=== PATIENT | male | born 1965 | race Caucasian/White ===

== ENCOUNTER 2017-03-24 08:43 | Emergency (ER) | payer MEDICAID ==
--- NOTE | 2017-03-24 08:56 | EDPHY ---
H & P Time Seen by Provider: 03/24/17 08:52 HPI/ROS: 51-year-old male presents complaining of sinus congestion with foul drainage for approximately 2 weeks, more recently associated with cough. He also complains of fever, no chills. He denies shortness of breath Review of systems As per HPI General positive fever no chills no weakness HEENT, positive URI symptoms positive nasal congestion and drainage no eye pain no eye discharge. No eye redness, no sore throat Respiratory positive cough, no shortness of breath Cardiac no chest pain, no peripheral edema GI no abdominal pain, no diarrhea, no constipation, no nausea, no vomiting no flank pain, no hematuria, no dysuria Musculoskeletal no myalgias, no joint pain Heme no easy bruising, no easy bleeding Endo no polyuria, no polydipsia Skin no rashes, no pruritus Neuro no syncope, no dizziness, no headaches Psych is no suicidal ideation, no homicidal ideation Past Medical/Surgical History: Sinusitis Social History: Alcohol socially, denies drug use Smoking Status: Never smoked Physical Exam: 51-year-old male Alert and oriented nontoxic appearance, no acute distress afebrile Atraumatic normocephalic Extraocular muscles intact, anicteric Nares mild yellowish discharge, erythematous turbinates, deviated septum Oropharynx mild erythema no tonsillar swelling no exudate no uvular deviation, tolerating own secretions Neck supple no lymphadenopathy Lungs clear to auscultation bilaterally Heart regular rate and rhythm Abdomen normoactive bowel sounds soft nontender Extremities no cyanosis clubbing or edema Skin no rash Constitutional: Initial Vital Signs Temperature (C) 36.4 C 03/24/17 08:45 Heart Rate 72 03/24/17 08:45 Respiratory Rate 20 03/24/17 08:45 Blood Pressure 136/80 H 03/24/17 08:45 O2 Sat (%) 92 03/24/17 08:45 O2 Delivery Mode Room Air Allergies/Adverse Reactions: No Known Allergies Allergy (Unverified 11/25/14 15:29) Home Medications: Medication Instructions Recorded AZITHROMYCIN [Z-PACK] 250 mg PO DAILY #6 tab 03/24/17 Codeine Phosphate/Guaifenesin 15 ml PO Q6 PRN #240 ml 03/24/17 [Codeine-Guaifen 10-100 mg/5 ml] Fluticasone Nasal [Flonase Nasal 2 sprays NASAL DAILY #1 mdi 03/24/17 [place]] Medical Decision Making ED Course/Re-evaluation: Patient seen and evaluated for sinus congestion, fevers chills, cough, nasal drainage Differential diagnosis considered URI, sinusitis, bronchitis, pneumonia Impression Sinusitis and bronchitis Plan Z-Denilson (at patients request) Fluticasone Codeine guaifenesin cough syrup Follow-up primary care physician Return as needed Departure - Departure Disposition: Home, Routine, Self-Care Clinical Impression: Sinusitis, Bronchitis Condition: Good Instructions: Sinusitis (ED), Acute Bronchitis (ED) Referrals: NONE *PRIMARY CARE P,. [Primary Care Provider] - As per Instructions Prescriptions: AZITHROMYCIN [Z-PACK] 250 mg PO DAILY #6 tab Codeine Phosphate/Guaifenesin [Codeine-Guaifen 10-100 mg/5 ml] 15 ml PO Q6 PRN # 240 ml PRN Reason: Cough, Severe Fluticasone Nasal [Flonase Nasal [place]] 2 sprays NASAL DAILY #1 mdi
[2017-03-24 08:57] VITALS: BP 136/80; PULSE 72; RESP 20; TEMP 97.5; O2SAT 92
== END 2017-03-24 09:17 | disposition home or self-care (01) ==
LOC: CED 08:43
DX: J20.9 Acute bronchitis, unspecified (principal); J32.9 Chronic sinusitis, unspecified

== ENCOUNTER 2017-07-01 10:36 | Emergency (ER) | payer MEDICAID ==
[2017-07-01 10:47] VITALS: BP 139/72; PULSE 74; RESP 18; TEMP 99.1; O2SAT 92
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
== END 2017-07-01 11:04 | disposition home or self-care (01) ==
LOC: CED 10:36
DX: J01.01 Acute recurrent maxillary sinusitis (principal)

== ENCOUNTER 2017-07-06 11:10 | Emergency (ER) | payer MEDICAID ==
[2017-07-06 11:28] VITALS: BP 138/75; PULSE 69; RESP 14; TEMP 98.4; O2SAT 93
[2017-07-06] MEDS ORDERED: KETOROLAC 30 MG/1 ML SDV IVP ONE (11:35)
[2017-07-06] MEDS ORDERED: ACETAMINOPHEN 500 MG TAB PO ONE (11:36)
[2017-07-06] MEDS ORDERED: NS 1,000 ML IV ONE (11:49)
--- NOTE | 2017-07-06 11:51 | EDPHY ---
H & P Time Seen by Provider: 07/06/17 11:20 HPI/ROS: HPI Muscle aches, joint aches, sinus pain, sore throat. 51-year-old male by private vehicle. This patient presented to the emergency department here on July 01 with complaint of sinus congestion productive of a thick yellowish discharge mostly from his right nares and sinus pain/ pressure as well as a sore throat. He was diagnosed with a sinusitis. He was prescribed azithromycin. He finished this 2 days ago. He reports that his symptoms have continued. He complains of worsening muscle aches and joint aches , sore throat, pain involving his oral mucosa with shallow ulcerations, nausea and feeling lightheaded. He also states that he is having sweats at night and feeling feverish during the day and his symptoms overall seem worse at night. He reports a recent history of a tooth extraction which he had 3 weeks ago. He was on a 5 day course of amoxicillin after this. Denies ill contacts. No foreign travel. ROS: Constitutional: As above. No weakness. Eyes: No discharge. No changes in vision. ENT: As above. Respiratory: No cough. No shortness of breath. Cardiac: No chest pain, no palpitations. Gastrointestinal: No abdominal pain, no vomiting, no diarrhea. As above. Genitourinary: No hematuria. No dysuria or increased frequency with urination. Musculoskeletal: Significant for myalgias and arthralgias. Skin: No rashes. Neurological: No headache. No focal weakness or altered sensation. Past medical history: Cervical spine fusion surgery. He otherwise denies any significant past medical history. Social history: Nonsmoker. Denies alcohol. Here by himself. Physical Exam: General Appearance: Alert, no distress. He does not appear toxic. This patient is responding to questions appropriately and in full sentences. This patient appears well-hydrated and well-nourished. Eyes: Pupils equal and round no pallor or injection. No lid edema, erythema or injection. ENT, Mouth: Mucous membranes are moist. Mild pharyngeal erythema. No edema or swelling. No asymmetry suggestive of abscess. Scant shallow oral aphthous like ulcerations 1-2 mm in diameter pharyngeal arch and buccal mucosa. No stridor on auscultation of his neck. No significant pain on palpation of his maxillary and frontal sinuses. No facial soft tissue swelling. No cervical, submental, submandibular lymphadenopathy on palpation. Respiratory: There are no retractions, lungs are clear to auscultation with good air movement bilaterally. Cardiovascular: Regular rate and rhythm. No murmur. Gastrointestinal: Abdomen is soft and nontender, no masses, bowel sounds normal. No focal tenderness at McBurney's point. No Rivera sign. Neurological: Motor sensory function is grossly intact. Cranial nerves are normal. Gait is normal. Skin: Warm and dry, no rashes. Musculoskeletal: Neck is supple and nontender. No pain on flexion of the neck. Extremities are symmetrical. All joints range without pain or impingement. Psychiatric: No agitation. No depression. Database: EKG: Imaging: Procedures: Emergency department course: His vital signs reviewed and are normal. He has no contraindications to NSAIDs. No history of renal dysfunction or peptic ulcer disease. Swabs for influenza and strep obtained. I will also check him for mononucleosis and check a CBC. An IV was placed. He was given 30 mg of IV Toradol. He was given 1 g of oral Tylenol. 12:15 p.m., results of diagnostic testing reviewed with the patient. His presentation is consistent with a viral process. Serious bacterial infection is unlikely. At this time I do not feel that another course of antibiotics are indicated. I discussed supportive care with him. Hydration as well as Tylenol and ibuprofen for fever and sore throat. He feels comfortable with this and comfortable going home. He will follow up with his primary care physician on Tuesday for re-evaluation. Return to emergency department precautions were thoroughly reviewed with him. All of his questions were answered. He was discharged in good condition. Differential Diagnosis: The differential diagnosis on this patient includes but is not limited to influenza, viral sinusitis, viral syndrome. Bacterial sinusitis, streptococcal pharyngitis, mononucleosis, immune suppression associated pathology unlikely. This represents a partial list of diagnoses considered. These considerations are based on history, physical exam, past history, reassessment and diagnostic testing. Smoking Status: Never smoked Constitutional: Initial Vital Signs Temperature (C) 36.9 C 07/06/17 11:25 Heart Rate 69 07/06/17 11:25 Respiratory Rate 14 07/06/17 11:25 Blood Pressure 138/75 H 07/06/17 11:25 O2 Sat (%) 93 07/06/17 11:25 O2 Delivery Mode Room Air Allergies/Adverse Reactions: No Known Allergies Allergy (Verified 07/06/17 11:24) Home Medications: Medication Instructions Recorded NK [No Known Home Meds] 07/06/17 Medical Decision Making - Data Points Laboratory Results: Laboratory Results 07/06/17 11:40 07/06/17 07/06/17 07/06/17 Unknown 11:40 11:40 WBC 5.19 10^3/uL 10^3/uL (3.80-9.50) RBC 5.11 10^6/uL 10^6/uL (4.40-6.38) Hgb 15.3 g/dL g/dL (13.7-17.5) Hct 44.0 % % (40.0-51.0) MCV 86.1 fL fL (81.5-99.8) MCH 29.9 pg pg (27.9-34.1) MCHC 34.8 g/dL g/dL (32.4-36.7) RDW 12.1 % % (11.5-15.2) Plt Count 174 10^3/uL 10^3/uL (150-400) MPV 9.3 fL fL (8.7-11.7) Neut % (Auto) 56.2 % % (39.3-74.2) Lymph % (Auto) 30.1 % % (15.0-45.0) [place] % (Auto) 10.2 % % (4.5-13.0) Eos % (Auto) 2.5 % % (0.6-7.6) Baso % (Auto) 0.8 % % (0.3-1.7) Nucleat RBC Rel Count 0.0 % % (0.0-0.2) Absolute Neuts (auto) 2.92 10^3/uL 10^3/uL (1.70-6.50) Absolute Lymphs (auto) 1.56 10^3/uL 10^3/uL (1.00-3.00) Absolute Monos (auto) 0.53 10^3/uL 10^3/uL (0.30-0.80) Absolute Eos (auto) 0.13 10^3/uL 10^3/uL (0.03-0.40) Absolute Basos (auto) 0.04 10^3/uL 10^3/uL (0.02-0.10) Absolute Nucleated RBC 0.00 10^3/uL 10^3/uL (0-0.01) Immature Gran % 0.2 % % (0.0-1.1) Immature Gran # 0.01 10^3/uL 10^3/uL (0.00-0.10) Monoscreen NEGATIVE (NEGATIVE) Influenza A,B Rapid Group A Strep Screen Group A Strep DNA Pending 07/06/17 07/06/17 11:35 11:30 WBC RBC Hgb Hct MCV MCH MCHC RDW Plt Count MPV Neut % (Auto) Lymph % (Auto) [place] % (Auto) Eos % (Auto) Baso % (Auto) Nucleat RBC Rel Count Absolute Neuts (auto) Absolute Lymphs (auto) Absolute Monos (auto) Absolute Eos (auto) Absolute Basos (auto) Absolute Nucleated RBC Immature Gran % Immature Gran # Monoscreen Influenza A,B Rapid NEGATIVE FOR FLU (NEGATIVE) Group A Strep Screen NEGATIVE (NEGATIVE) Group A Strep DNA Medications Given: Discontinued Medications Acetaminophen (Tylenol) 1,000 mg PO EDNOW ONE Stop: 07/06/17 11:37 Last Admin: 07/06/17 11:44 Dose: 1,000 mg Sodium Chloride (Ns) 1,000 mls @ 0 mls/hr IV ONCE ONE PRN Reason: Wide Open Stop: 07/06/17 11:50 Last Admin: 07/06/17 11:51 Dose: 1,000 mls Ketorolac Tromethamine (Toradol) 30 mg IVP EDNOW ONE Stop: 07/06/17 11:36 Last Admin: 07/06/17 11:45 Dose: 30 mg Departure - Departure Disposition: Home, Routine, Self-Care Clinical Impression: Viral syndrome Condition: Good Instructions: Viral Syndrome (ED) Additional Instructions: Read and follow provided instructions. Follow-up with your primary care physician in 2 days for re-evaluation. You can start taking ibuprofen tonight after 8:00 p.m.. Ibuprofen dosin mg every 6 hours with meals for the next 3 days only. Take only as needed for pain. Continue to take Tylenol as directed for fever. Get lots of rest. Keep yourself well hydrated. Return to the emergency department for worsening symptoms or other serious concerns. Referrals: NONE *PRIMARY CARE P,. [Primary Care Provider] - As per Instructions
[2017-07-06 12:07] LABS: % IMMATURE GRANULYOCYTES 0.2 % (0.0-1.1); ABSOLUTE IMMATURE GRANULOCYTES 0.01 10^3/uL (0.00-0.10); ADD DIFF? NO; ADD MORPH? NO; ADD SCAN? YES; FRAGMENT RBC FLAG 0 (0-99); HEMOGLOBIN 15.3 g/dL (13.7-17.5); LEFT SHIFT FLG 0 (0-99); LIPEMIA HEMOLYSIS FLAG 90 (0-99); MEAN CELL HEMOGLOBIN 29.9 pg (27.9-34.1); MEAN CELL HEMOGLOBIN CONCENTR. 34.8 g/dL (32.4-36.7); MEAN CELL VOLUME 86.1 fL (81.5-99.8); MEAN PLATELET VOLUME 9.3 fL (8.7-11.7); PLATELET CLUMPS FLAG 10 (0-99); PLATELET COUNT 174 10^3/uL (150-400); RED BLOOD CELL COUNT 5.11 10^6/uL (4.40-6.38); RED CELL DISTRIBUTION WIDTH 12.1 % (11.5-15.2)
[2017-07-06 12:09] LABS: ATYPICAL LYMPHOCYTE FLAG 130 (0-99)
[2017-07-06 12:21] LABS: SCAN NEGATIVE
== END 2017-07-06 12:33 | disposition home or self-care (01) ==
LOC: CED 11:10
DX: B34.9 Viral infection, unspecified (principal); R42 Dizziness and giddiness
CPT/HCPCS: 85025-PO; 86308-PO; 87400-PO; 87880-PO; 96374; J1885